=== PATIENT | female | born 1990 | race American Indian/Alaskan Native ===

== ENCOUNTER 2018-02-16 13:11 | Emergency (ER) | payer MEDICAID ==
[2018-02-16 13:51] VITALS: BP 116/79
[2018-02-16] MEDS ORDERED: DECADRON IM ONE (15:41)
[2018-02-16] MEDS ORDERED: PEPCID PO ONE (15:42)
--- NOTE | 2018-02-16 15:46 | Emergency Department Report ---
ED Rash HPI - HPI Chief Complaint: Skin Rash Stated Complaint: RASH Time Seen by Provider: 02/16/18 15:24 Duration: 1 Day Location: Head, Back, Upper Extremities Suspected Cause: Unknown Rash Symptoms: Yes Itching, No Facial Swelling, No Tongue/Oral Swelling, No Breathing Difficulties, No Choking Sensation, No Wheezing/Dyspnea, No Peeling, No Blistering, No Fever, No Lightheaded, No Malaise, No Myalgias Severity: mild, moderate Other History: 27-year-old female past medical history eczema presents with complaint of itchy skin on the scalp base of the neck arms bilaterally and lower back. Patient states that this is similar to contact dermatitis episodes she has had in the past. Patient states she is currently visiting family members and does not know if she came to contact with a new allergen is not endorse anything specific. Patient states that [place] park [place] and may have been splashed by some pool water. Patient denies fevers chills in usual state of health otherwise. Patient states she actually has an allergy to Benadryl and breaks out with hives when taking Benadryl. Also allergic to oranges and peaches. Patient states that she noticed onset of rash and itching last night. Denies any facial swelling tongue swelling. Speaking in full sentences awake alert and oriented 3 not in acute distress. ED Review of Systems ROS: Stated complaint: RASH Other details as noted in HPI Constitutional: denies: chills, fever Eyes: denies: eye pain, eye discharge, vision change ENT: denies: ear pain, throat pain Respiratory: denies: cough, shortness of breath, wheezing Cardiovascular: denies: chest pain, palpitations Endocrine: no symptoms reported Gastrointestinal: denies: abdominal pain, nausea, diarrhea Genitourinary: denies: urgency, dysuria, discharge Musculoskeletal: denies: back pain, joint swelling, arthralgia Skin: as per HPI, pruritus. denies: rash, lesions Neurological: denies: headache, weakness, paresthesias Psychiatric: denies: anxiety, depression Hematological/Lymphatic: denies: easy bleeding, easy bruising ED Past Medical Hx - Past Medical History Additional medical history: Exzema - Surgical History Past Surgical History?: No - Social History Smoking Status: Never Smoker Substance Use Type: None - Medications Home Medications: Home Medications Medication Instructions Recorded Confirmed Last Taken Type Colloidal Oatmeal [Oatmeal Bath] 1 each TP QDAY #1 box 02/16/18 Unknown Rx Mineral Oil/Hydrophil Petrolat 1 applicatio TP BID #1 oint...g. 02/16/18 Unknown Rx [Aquaphor Healing Ointment] Prednisone [predniSONE 10 mg 10 mg PO .TAPER #1 tab.ds.pk 02/16/18 Unknown Rx (6-Day Pack, 21 Tabs)] Triamcinolone 0.1% [Kenalog 0.1% 1 applic TP TID PRN #1 tube 02/16/18 Unknown Rx OINT] Rash Exam - Exam General: Vital signs noted. No distress. Alert and acting appropriately. HEENT: No Periorbital Edema, No Conjuctival Injection, No Chemosis, No Perioral Edema, No Tongue Edema, No Uvular Edema, No Compromised Airway, No Drooling Lungs: Yes Good Air Exchange (Normal Breath Sounds), No Wheezes, No Ronchi, No Stridor, No Cough, No Labored Respirations, No Retractions, No Use of Accessory Muscles, No Other Abnormal Lung Sounds Heart: Yes Regular, No Murmur Skin: Yes Urticarial Rash (small hives on bilateral arms legs and the posterior neck, eczematous skin changes), No Maculopapular Rash, No Morbilliform rash, No Bulla(e), No Excoriations, No Weeping, No Tenderness, No Erythema, No Edema, No Encrustations, No Other Other: Positive: Abdomen Normal, Neurologic Normal, Musculoskeletal Normal ED Course Vital Signs 02/16/18 13:42 Temperature 98.6 F Pulse Rate 80 Respiratory 18 Rate Blood Pressure 116/79 O2 Sat by Pulse 100 Oximetry ED Medical Decision Making - Medical Decision Making A/P: Contact dermatitis, hives, eczematous dermatitis 1-topical triamcinolone, oatmeal bath, short course of prednisone. Patient states she has reacted negatively to antihistamines in the past, states she actually develops urticarial rash with Benadryl 2-patient states she will follow-up with her own physicians in [place] states she is currently visiting. She states she'll be referred to. Approximately 2- 3 weeks I will provide her information for dermatology/ allergists 3-no clinical signs of angioedema on exam Critical care attestation.: If time is entered above; I have spent that time in minutes in the direct care of this critically ill patient, excluding procedure time. ED Disposition Clinical Impression: Contact dermatitis and eczema Eczematous dermatitis Qualifiers: Eczema type: unspecified Qualified Code(s): L30.9 - Dermatitis, unspecified Disposition: - TO HOME OR SELFCARE Is pt being admited?: No Does the pt Need Aspirin: No Condition: Stable Instructions: Contact Dermatitis (ED), Eczema (ED) Prescriptions: Colloidal Oatmeal [Oatmeal Bath] 1 each TP QDAY #1 box Mineral Oil/Hydrophil Petrolat [Aquaphor Healing Ointment] 1 applicatio TP BID # 1 oint...g. Prednisone [predniSONE 10 mg (6-Day Pack, 21 Tabs)] 10 mg PO .TAPER #1 tab.ds.pk Triamcinolone 0.1% [Kenalog 0.1% OINT] 1 applic TP TID PRN #1 tube PRN Reason: Itching Referrals: [facility] HENDRICKSON [Other] - 3-5 Days [facility] [Provider Group] - 3-5 Days [facility] [Provider Group] - 3-5 Days Time of Disposition: 15:46
== END 2018-02-16 16:32 | disposition home or self-care (01) ==
LOC: ED 13:11
DX: L25.9 Unspecified contact dermatitis, unspecified cause (principal)
CPT/HCPCS: 99281; J1100